=== PATIENT | female | born 1965 | race Caucasian/White ===

== ENCOUNTER 2016-11-25 09:50 | Emergency (ER) | payer OTHER ==
[~2016-11-25] VITALS: Ht 175.3 cm; Wt 70.0 kg
[2016-11-25 09:52] VITALS: BP 193/97; PULSE 79; RESP 18; TEMP 98.6; O2SAT 100
[2016-11-25 10:07] VITALS: BP 189/88; PULSE 98; RESP 15; O2SAT 100
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
[2016-11-25] MEDS ORDERED: PERC5TAB12 PO (12:40)
== END 2016-11-25 13:26 | disposition home or self-care (01) ==
LOC: NEPD 09:50
DX: S42.022A Displaced fracture of shaft of left clavicle, initial encounter for closed fracture (principal); S20.219A Contusion of unspecified front wall of thorax, initial encounter; Y04.2XXA Assault by strike against or bumped into by another person, initial encounter
CPT/HCPCS: 29240; 71010; 73000